=== PATIENT | female | born 1975 | race Two or more races ===

== ENCOUNTER 2025-02-08 04:31 | Inpatient (IN) | payer MEDICAID, SELFPAY ==
[2025-02-08] VITALS (11 sets, daily range): BP systolic 129–160; BP diastolic 70–102; PULSE 95–130; RESP 13–26; TEMP 36.4–36.9; O2SAT 92–99; BMI 31.1; BMI 33.3
--- NOTE | 2025-02-08 | ECG_ITS ---
Test Reason : chest pain Blood Pressure : */* mmHG Vent. Rate : 95 BPM Atrial Rate : 95 BPM P-R Int : 148 ms QRS Dur : 88 ms QT Int : 404 ms P-R-T Axes : 50 46 58 degrees QTcB Int : 507 ms Normal sinus rhythm Nonspecific T wave abnormality Prolonged QT Abnormal ECG When compared with ECG of 08-Feb-2025 16:17, No significant change was found Referred By: Isabela Hoyt Electronically Signed By: MESFIN POE
--- NOTE | 2025-02-08 | ECG_ITS ---
Test Reason : CHEST PAIN Blood Pressure : */* mmHG Vent. Rate : 97 BPM Atrial Rate : 97 BPM P-R Int : 144 ms QRS Dur : 98 ms QT Int : 366 ms P-R-T Axes : 45 42 68 degrees QTcB Int : 464 ms Normal sinus rhythm Normal ECG No previous ECGs available Referred By: Generic ED Physician Electronically Signed By: MESFIN POE
[2025-02-08 05:29] LABS: Alanine Aminotransferase 29 U/L (0-31); Albumin Level 4.8 g/dL (3.5-5.0); Alkaline Phosphatase 79 U/L (39-117); Anion Gap 24 (12-20); Aspartate Amino Transferase 76 U/L (5-31); Blood Urea Nitrogen 8 mg/dL (9-16); Calcium 8.6 mg/dL (8.4-10.2); Carbon Dioxide 18 mmol/L (22-29); Chloride 104 mmol/L (96-108); Creatinine Clr Calc Pharmacy 119.8; Estimated Glomerular Filt Rate > 60; Potassium 3.1 mmol/L (3.3-5.1); Sodium 143 mmol/L (135-145); Total Protein 8.3 g/dL (6.5-8.0)
[2025-02-08 05:37] LABS: Troponin-I High Sensitivity 13.3 ng/L (<3.5-17.0)
[2025-02-08 06:08] LABS: Magnesium 2.0 mg/dL (1.6-2.6)
[2025-02-08 06:14] LABS: Hematocrit 39.1 % (37.0-47.0); Hemoglobin 13.0 g/dl (12.0-16.0); Imm Gran Abs Auto 0.01 X10*3/uL (0.00-0.03); Imm Gran Pct Auto 0.2 % (0.0-0.4); Lymphocytes Absolute Auto 1.5 X10*3/uL (1.2-4.9); Mean Corpuscular HGB Conc 33.2 g/dl (31.0-35.0); Mean Corpuscular Hemoglobin 30.0 pg (27.0-33.0); Mean Corpuscular Volume 90.1 fL (80.0-98.0); NRBC Abs Auto 0.000 X10*3/uL (0.0-0.012); NRBC Pct Auto 0.0 /100WBC (0.0-0.2); Platelet Count 149 X10*3/uL (160-400); Red Blood Count 4.34 X10*6/uL (4.20-5.50); White Blood Count 4.1 X10*3/uL (4.8-10.8)
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
[2025-02-08] MEDS: Lactated Ringers 1,000 ML 999 ML IV (06:43)
[2025-02-08] MEDS: diazePAM 10 MG/2 ML CARTRIDGE 5 MG IVPUSH (06:43)
[2025-02-08] MEDS: Potassium Chloride Packet 20 MEQ PACKET 40 MEQ PO (06:44)
--- OUTSIDE RECORDS SUMMARY | 2025-02-08 07:50 | XMS_ITS | Encounter Summary ---
Author Organization [facility] Address [address] [place] [id number] Care Team Providers Care Arresting Gear Operator Name Role Phone Paula Horton MD Primary Care Provider [phone]- [phone] Encounter Details Date Type Department Care Team (Late st Contact Info) Description 05/20/2016 Orders Only [facility] Primary Care Family Medicine [place] 5 [facility] [address] [place] [address] Paula Horton MD 5 [facility] [address] [place] [address] Social History Tobacco Use Types Packs/Day Years Used Date Smoking Tobacco: Former Comments:social smoker for 1 0 years Alcohol Use Standard Drinks/Week Comments Yes 0 (1 standard drink = 0.6 oz pur e alcohol) 4 days a week- 5 beers Substance Use Types Use/Week Comments No Comments No Sex and Gender Information Value Date Recorded Sex Assigned at Not on file Legal Sex Female 12:14 PM EDT Gender Identity Not on file Sexual Orientation Not on file documented as of this encounter Functional Status * Are you deaf or do you have serious difficulty hearing? Answer Date of Assessment Author Status No 08/23/2014 11:04 AM EDT Kathrine Boogie R N Active * Are you blind or do you have serious difficulty seeing, even when wearing glasses? Answer Date of Assessment Author Status No 08/23/2014 11:04 AM EDT Kathrine Boogie R N Active * Do you have serious difficulty walking or climbing stairs? (5 years old or older) Answer Date of Assessment Author Status No 08/23/2014 11:04 AM EDT Kathrine Boogie R N Active * Do you have difficulty dressing or bathing? (5 years old or older) Answer Date of Assessment Author Status No 08/23/2014 11:04 AM EDT Kathrine Boogie R N Active * Because of a physical, mental, or emotional condition, do you have difficulty doing errands alone such as visiting a doctor's office or shopping? (15 years old or older) Answer Date of Assessment Author Status No 08/23/2014 11:04 AM EDT Kathrine Boogie R N Active documented as of this encounter Mental Status * Because of a physical, mental, or emotional condition, do you have serious difficulty concentrating, remembering, or making decisions? (5 years old or older) Answer Entry Date Author Status No 08/23/2014 11:04 AM EDT Kathrine Boogie R N Active documented in this encounter Miscellaneous Notes * Telephone Encounter - Roseanna Rios FNP - 01/30/2017 2:03 PM EST Covering for PCP g sent documented in this encounter Plan of Treatment Not on file documented as of this encounter Goals Goal Patient Goal Type Associated Problems Recent Progress Patient-Stated? Author Weight loss Weight No Paula Horton MD documented as of this encounter Procedures Procedure Name Priority Date/Time Associated Diagnosis Comments VITAMIN D 25-HYDROXY TOTAL (DEFICIENCY SCREENING ASSAY) Routine 01/29/2017 8:48 AM EST Hypovitaminosis D documented in this encounter Results * (ABNORMAL) VITAMIN D 25-HYDROXY TOTAL (DEFICIENCY SCREENING ASSAY) (01/29/2017 8:48 AM EST) Vitamin D 25-Hydroxy 20.1(L) 25.0 - 50.0 ng/mL [facility] Comment: <13 ng/mL (deficient) 13-24 ng/mL (inadequate) 25-50 ng/mL (sufficient) >50 ng/mL (possibly harmful level - this is a suggested range according to the IOM/CDC 2011 guidelines, please interpret within the clinical context) Blood specimen (specimen) 01/29/2017 8:48 AM EST 01/29/2017 8:49 AM EST Paula Horton MD CHEMISTRY ORDERABLES Final Result [facility] [address] [place] [address] documented in this encounter Visit Diagnoses Diagnosis Hypovitaminosis D Unspecified vitamin D deficiency documented in this encounter Additional Health Concerns Assessment Noted Time A Body Mass Index follow-up plan has been documented for the patient 03/27/2016 9:39 AM EST documented as of this encounter Care Teams Arresting Gear Operator Relationship Specialty Start Date End Date Paula Horton MD [address] [phone] PCP - General Family Medicine 02/21/16 05/24/21 documented as of this encounter
--- OUTSIDE RECORDS SUMMARY | 2025-02-08 07:50 | XMS_ITS | Encounter Summary ---
Author Organization [facility] Address [address] [place] [id number] Care Team Providers Care Title I Instructional Assistant Name Role Phone Paula Horton MD Primary Care Provider [phone]- [phone] Reason for Visit * Reason Comments Medications Refill Encounter Details Date Type Department Care Team (Late st Contact Info) Description 05/18/2021 Refill [facility] Primary Care Family Medicine [place] [address] [phone] Paula Horton MD [address] [phone] Social History Tobacco Use Types Packs/Day Years Used Date Smoking Tobacco: Former Smokeless Tobacco: Never Comments:social smoker for 1 0 years Alcohol Use Standard Drinks/Week Comments Yes 0 (1 standard drink = 0.6 oz pur e alcohol) PHQ-2 Answer Date Recorded Patient Health Questionnaire-2 Score 3 01/11/2021 Substance Use Types Use/Week Comments No Comments [...] encounter Miscellaneous Notes * Telephone Encounter - Navya Castaneda MA - 05/19/2021 11:11 AM EST Called to remind of upcoming appointments Future Appointments Date Time Provider Department Center 05/29/2021 4:30 PM Paula Horton MD [facility] 07/12/2021 2:50 PM Paula Horton MD [facility] * Telephone Encounter - Paula Horton MD - 05/18/2021 5:11 PM EST Please ensure patient knows about her upcoming appt, she has no showed her last several appointments * Telephone Encounter - Navya Castaneda MA - 05/18/2021 3:22 PM EST Medication refill being requested: Date of last refill: 04/17/21 30/1rf Requested Prescriptions Pending Prescriptions Disp Refills ??? escitalopram (Lexapro) 10 MG Tab [Pharmacy Med Name: ESCITALOPRAM 10 MG TABLET] 30 Tablet 1 Sig: TAKE 1 TABLET BY MOUTH EVERY DAY Last OV: 01/11/21 Pending Appointment: Future Appointments Date Time Provider Department Center 05/29/2021 4:30 PM Paula Horton MD [facility] 07/12/2021 2:50 PM Paula Horton MD [facility] Medication has been processed per practice protocol. Refill encounter routed to provider for review and signature. I have reviewed and verified that the above information is correct. documented in this encounter Plan of Treatment Not on file documented as of this encounter Goals Goal Patient Goal Type Associated Problems Recent Progress Patient-Stated? Author Weight loss Weight No Paula Horton MD documented as of this encounter Visit Diagnoses Not on filedocumented in this encounter Additional Health Concerns Assessment Noted Time A Body Mass Index follow-up plan has been documented for the patient 03/27/2016 9:39 AM EST A Depression follow-up plan has been documented for the patient 01/11/2021 2:54 PM EDT documented as of this encounter Care Teams Title I Instructional Assistant Relationship Specialty Start Date End Date Paula Horton MD [address] [address] [phone] PCP - General Family Medicine 02/21/16 05/24/21 documented as of this encounter
--- OUTSIDE RECORDS SUMMARY | 2025-02-08 07:51 | XMS_ITS | Encounter Summary ---
Author Organization [facility] Address [address] [place] [address] Care Team Providers Care Non Profit Financial Controller Name Role Phone Paula Horton MD Primary Care Provider +1- [phone] Reason for Visit * Reason Onset Date Comments Medications Refill Schedule Appointment 04/24/2021 Encounter Details Date Type Department Care Team (Late st Contact Info) Description 04/16/[address] [facility] Primary Care Family Medicine [place] 5 [facility] [address] [place] [phone] Paula Horton MD 5 [facility] [address] [place] [address] Social History Tobacco Use Types [...] documented in this encounter Miscellaneous Notes * This document contains information received from the source organization and may not represent a complete record from that organization. * Restricted notes were excluded * Telephone Encounter - Emelia Rodríguez - 04/24/2021 2:20 PM ESTSummary: Med review appt LVM for patient to call or send [employer] message to follow up on medication * Telephone Encounter - Rachel Field MA - 04/17/2021 3:28 PM EST LM for patient to confirm that she is taking a full 10mg tab daily Medication refill being requested: Escitalopram Date of last refill: 01/11/21 Requested Prescriptions Pending Prescriptions Disp Refills ??? escitalopram 10 MG Tab [Pharmacy Med Name: ESCITALOPRAM 10 MG TABLET] 30 Tablet 3 Sig: TAKE 1/2 TABLET BY MOUTH DAILY X 1 WEEK THEN INCREASE TO 1 TAB DAILY Last OV: 01/11/21 Pending Appointment: Medication has been processed per practice protocol. [...] documented as of this encounter Care Teams Non Profit Financial Controller Relationship Specialty Start Date End Date Paula Horton MD [address] [phone] PCP - General Family Medicine 02/21/16 05/24/21 documented as of this encounter
--- OUTSIDE RECORDS SUMMARY | 2025-02-08 07:51 | XMS_ITS | Clinical Summary ---
Author Organization [facility] Address [address] [place] [address] Care Team Providers Care Neurology Director Name Role Phone Unavailable Primary Care Provider Unavailabl e Allergies No known active allergies Medications Multiple Vitamin (MULTIVITAMIN) Tab Take 1 Tab by mouth daily Active Spacer/Aero-Hol ding Chambers (AEROCHAMBER PLUS LISETH-VU LARGE) Misc 1 spacer 1 Each 9 Active albuterol HFA (PROAIR HFA) 108 (90 Base) MCG/ACT Aero Soln Inhalation 2 Puffs every 6 hours as needed for Wheezing 1 Inhaler 9 Active lidocaine-prilo delfina 2.5-2.5 % Cream Apply a thin layer 10 minutes before vaccination 30 gm 3 1 Active escitalopram (Lexapro) 10 MG Tab TAKE 1 TABLET BY MOUTH EVERY DAY 30 Tablet 2 Active Active Problems Problem Noted Date Diagnosed Date Anxiety 01/12/2021 Assessment & Plan (01/12/2021 9:52 AM EDT): Worsening anxiety, no acute depression, no signs of nakita. Patient safe at home, declines talk therapy. Discussed medication options in [place] escitalopram 5mg x 1 week, then increase to 10mg daily Has follow up in 1 month Discussed side effects of medication TSH, CBC, ferritin, recheck Vit D Elevated blood-pressure read ing without diagnosis of hypertension 12/03/2018 Assessment & Plan (12/03/2018 9:35 AM EDT): Blood pressure on the high end of normal. Patient continues to work on diet, exercise and weight loss. Hope that cessation of alcohol will continue to bring pressure down. Will recheck at next visit, if elevated, will start medications Vitamin D deficiency 03/27/2016 Assessment & Plan (01/12/2021 9:49 AM EDT): Vit D ordered Alcohol abuse 03/08/2016 Assessment & Plan (01/12/2021 9:50 AM EDT): Has done a great job cutting back on alcohol use Now with 1-2 drinks on the weekend Has not needed medication to help with etoh cessation Assessment & Plan (12/03/2018 9:30 AM EDT): Naltrexone with very limited effect on drinking. patient interested in something to help her avoid alcohol. Discussed options. Will trial antabuse. Discussed side effects In detail with patient. Will take in the morning to help deter evening alcohol use. Hand out on medication given. Discussed vivitrol injection, however patient would like to try oral medication first Expect that craving will be reduced when ex leaves the house in 1 months Assessment & Plan (03/08/2016 11:43 AM EST): 5-10 drinks nightly when depression is severe. No RUQ symptoms at presents - discussed slowly cutting down alcohol - ref behavioral health - CMP to assess liver function Health care maintenance 03/08/2016 Assessment & Plan (03/08/2016 11:44 AM EST): No records available today - agreeable to STD testing- blood work - Hep panel - HIV - syphilis - records requested - will return to clinic in 1 month for PE Chronic fatigue 03/08/2016 Assessment & Plan (03/08/2016 11:44 AM EST): - vit D - TSH Resolved Problems Problem Noted Date Diagnosed Date Resolved Date Cough 03/03/2018 12/03/2018 Assessment & Plan (03/03/2018 2:31 PM EST): 3-4 weeks of cough. Initially also had subjective fever, body aches, and fatigue, these have all now resolved. Worsening sx yesterday after sweeping house and developing sneezing/congestion. Likely viral URI vs influenza that has now resolved apart from post-viral cough, now with exacerbation due to allergies. - reviewed that cough can last for 6-8 weeks, symptomatic treatment with honey - trial of OTC zyrtec vs flonase for allergies - reviewed when to call: fever, increase in cough production, chest pain Depression 03/08/2016 01/12/2021 Assessment & Plan (12/03/2018 9:32 AM EDT): Patient witn improvement in her depression since starting sertraline, interested in increasing her medication. PARVEEN 9 of 9 today Will increase her Sertraline to 100mg daily Ok to increase trazodone to 100mg nightly for sleep Counseled in detail to avoid this medication if she has any alcohol Assessment & Plan (02/21/2017 2:18 PM EST): Patient with worsening depression and insomnia due to anxiety. Lots of life stressors- difficultly with work, in the family, recent break up. Would like to restart medications. Discussed sleep hygiene in detail. Patient has cut down alcohol use during the week- and working on decreasing alcohol at home. Has a follow up with [employer] coming up- patient hoping to work on technique to decrease racing mind. - Sertraline 50mg for 1 week, then increase to 100mg - Vistaril - STOP any OTC sleep aid - discussed sleep hygiene - continue to work on decreasing alcohol use - no Vistaril with alcohol - follow up 1 month - sooner if continues to be unabelt o sleep- could trial alternate sleep aids Assessment & Plan (01/29/2017 10:18 AM EST): PHQ-9 11 Ref to SW made today Rec melatonin If not working would try trazodone Assessment & Plan (03/08/2016 11:41 AM EST): Long standing history of depression, has a history of suicide attempts, however no recent thoughts of hurting herself or others. Feels safe at home. Consented for safety. Not interested in starting medcations at this time- is interested in meeting with behavioral health. Not able to perform warm hand off as social workers are unavailable, ray will make appointment as she leaves. - gave crisis numbers - discussed role of [facility] - patient to call should she wish to start medications - f/u 1 month - TSH - CBC -obtain old records Immunizations Immunization Administration Dates Next Due Pfizer Purple Cap(12+) Covid -19,mrna,lnp-s,pf,0.3ml ([id number]) 08/09/2020,07/19/2020 Family History Medical History Relation Name Comments Alcohol Abuse Father Drug Abuse Father Hypertension Father Heart Disease Maternal Grandfather Colon Cancer Maternal Uncle Hypertension Mother Relation Name Status Comments Father Maternal Grandfather Maternal Uncle Mother Social History Tobacco Use Types Packs/Day Years [...] on file Sexual Orientation Not on file Last Filed Vital Signs Vital Sign Reading Time Taken Comments Blood Pressure 126/92 01/11/2021 2:49 PM EDT Pulse 96 01/11/2021 2:49 PM EDT Temperature 35.8 C (96.4 F) 01/11/2021 2:49 PM EDT Respiratory Rate 16 12/02/2018 9:12 AM EDT Oxygen Saturation 99% 01/11/2021 2:49 PM EDT Inhaled Oxygen Concentration 99% 01/11/2021 2 :49 PM EDT Weight 83.6 kg (184 lb 6.4 oz) 01/11/2021 2:49 P M EDT Height 157.5 cm (5' 2.01 ) 01/11/2021 2:49 PM ED T Body Mass Index 33.72 01/11/2021 2:49 PM EDT Plan of Treatment Not on file Goals Goal Patient Goal Type Associated Problems Recent Progress Patient-Stated? Author Weight loss Weight No Paula Horton MD Insurance [facility]
--- OUTSIDE RECORDS SUMMARY | 2025-02-08 07:51 | XMS_ITS | Encounter Summary ---
Author Organization [facility] Address [address] [place] [id number] Care Team Providers Care Fare Collector Name Role Phone Paula Horton MD Primary Care Provider [phone]- [phone] Encounter Details Date Type Department Care Team (Late st Contact Info) Description 03/27/2016 Orders Only [facility] [place] 5 [facility] [address] [place] [address] Paula Horton MD 5 [facility] [address] [place] [address] Social History Tobacco Use Types [...] Telephone Encounter - Roseanna Rios FNP - 01/29/2017 4:02 PM EST ASCVD% 0.5%. msg sent. Normal flp for age documented in this encounter Plan of Treatment Not on file documented as of this encounter Goals Goal Patient Goal Type Associated Problems Recent Progress Patient-Stated? Author Weight loss Weight No Paula Horton MD documented as of this encounter Procedures Procedure Name Priority Date/Time Associated Diagnosis Comments LIPID PANEL Routine 01/29/2017 8:48 AM EST Screening for lipid disorders documented in this encounter Results * (ABNORMAL) LIPID PANEL (01/29/2017 8:48 AM EST) Cholesterol, POC 210(H) 112 - 199 mg/dL [facility] Triglycerides, POC 126 mg/dL [facility] Comment: REFERENCE RANGE: < 150 mg/dl FOR FASTING < 175 mg/dl FOR NON-FASTING (BASED ON LITERATURE) HDL Cholesterol, POC 66 40 - 200 mg/dL [facility] LDL Cholesterol Calculation 119(H) 57 - 99 mg/dL [facility] Blood specimen (specimen) 01/29/2017 8:48 AM EST 01/29/2017 8:49 AM EST Paula Horton MD CHEMISTRY ORDERABLES Final Result [facility] [address] [place] [address] documented in this encounter Visit Diagnoses Diagnosis Screening for lipid disorders documented in this encounter Additional Health Concerns Assessment Noted Time A Body Mass Index follow-up plan has been documented for the patient 03/27/2016 9:39 AM EST documented as of this encounter Care Teams Fare Collector Relationship Specialty Start Date End Date Paula Horton MD [address] [address] PCP - General Family Medicine 02/21/16 05/24/21 documented as of this encounter
[2025-02-08] MEDS: PHENobarbitaL sodium 130 MG/ML IM ONCE 200 MG IM (10:21)
--- NOTE | 2025-02-08 10:28 | PM.IMHP ---
History of Present Illness Date of Service: 02/08/25 <Isabela Hoyt NP - Last Filed: 02/08/25 13:50> Chief Complaint: Call intoxication <Isabela Hoyt NP - Last Filed: 02/08/25 13:50> Alcohol intoxication <Alix Colon MD - Last Filed: 02/26/25 09:14> 49-year-old woman presented to the ER with alcohol intoxication and withdrawal. Patient reported that she moved here from [place] about 3 weeks ago to move in with her boyfriend and has been drinking consistently every day. She reports that prior to 3 weeks ago she has not been drinking as often but has had many issues over the years with her alcoholism. She reports that this time she is not talking to any of her children. Patient reports feeling shaky, poor appetite. Alcohol level was 380. Potassium 3.1, tachycardia and hypertension noted. Patient will be admitted for alcohol intoxication and withdrawal. <Isabela Hoyt NP - Last Filed: 02/08/25 13:50> Review of Systems Review of Systems: Denies any recent fever chills or decrease in appetite respiratory denies any shortness of breath or cough cardiovascular denied chest pain gastrointestinal denies any dysphagia abdominal pain nausea vomiting or diarrhea genitourinary denies any dysuria frequency or hematuria musculoskeletal denies any joint pain or swelling neuropsych denies any weakness or seizures all other systems reviewed are negative <Isabela Hoyt NP - Last Filed: 02/08/25 13:50> [facility] Medical History: Medical History (Updated 02/18/25 @ 00:02 by Jaylene Garcia) Alcohol use disorder, severe, dependence Anxiety Hypertension <Isabela Hoyt NP - Last Filed: 02/08/25 13:50> Family History: Family History (Updated 02/08/25 @ 11:05 by Isabela Hoyt NP) Father Alcoholic <Isabela Hoyt NP - Last Filed: 02/08/25 13:50> Social History: Social History Household Members: None Housing: Homeless Do you presently have visiting nurse or other home services: No Alcohol intake: current Patient Tobacco Use Status: Former Tobacco user <Isabela Hoyt NP - Last Filed: 02/08/25 13:50> Meds Allergies/Adverse reactions: Allergies Allergy/AdvReac Type Severity Reaction Status Date / Time No Known Allergies Allergy Verified 02/08/25 04:43 <Isabela Hoyt NP - Last Filed: 02/08/25 13:50> Active Medications: Current Medications Lactated Ringer's (Lr) 1,000 mls @ 0 mls/hr IV .Q0M MADDY Last Infusion: 02/08/25 08:04 Dose: Infused Pharmacy Consult (Consult Rx Etoh Phenob Im/Po) 1 each MISCELLANE ONCE PRN; Protocol PRN Reason: Consult order Phenobarbital (Phenobarbital 15 Mg Tablet) 45 mg PO BID MADDY; Protocol Stop: 02/10/25 21:01 Phenobarbital (Phenobarbital 30 Mg Tablet) 30 mg PO BID MADDY; Protocol Stop: 02/12/25 21:01 Phenobarbital (Phenobarbital 30 Mg Tablet) 30 mg PO DAILY MADDY; Protocol Stop: 02/14/25 09:01 Phenobarbital Sodium (Phenobarbital Sodium 130 Mg/Ml Im Once) 200 mg IM ONCE ONE; Protocol Stop: 02/08/25 11:01 Last Admin: 02/08/25 10:21 Dose: 200 mg Phenobarbital Sodium (Phenobarbital Sodium 130 Mg/Ml Vial Im Q3hx2) 150 mg IM Q3H MADDY; Protocol Stop: 02/08/25 17:01 <Isabela Hoyt NP - Last Filed: 02/08/25 13:50> Home medications: Home Medications ?Medication ?Instructions ?Recorded ?Confirmed ?Last Taken ?Type amlodipine 5 mg tablet 5 mg PO DAILY 02/08/25 02/08/25 Unknown History citalopram 10 mg tablet 10 mg PO DAILY 02/08/25 02/08/25 Unknown History hydrochlorothiazide 25 mg tablet 25 mg PO DAILY 02/08/25 02/08/25 Unknown History mirtazapine 7.5 mg tablet 7.5 mg PO BEDTIME PRN Insomnia 02/08/25 02/08/25 Unknown History multivitamin 1 tab PO DAILY 02/08/25 02/08/25 Unknown History <Isabela Hoyt NP - Last Filed: 02/08/25 13:50> Physical Exam Vital Signs and Narrative: Vital Signs: Last Vital Signs Temp 98.3 F 02/08/25 08:24 Pulse 101 H 02/08/25 08:24 Resp 18 02/08/25 08:24 BP 160/70 H 02/08/25 08:24 Pulse Ox 95 02/08/25 08:24 O2 Del Method Room Air 11/17/25 08:24 BMI result Body Mass Index 31.1 <Isabela Hoyt NP - Last Filed: 02/08/25 13:50> Appearing in no acute distress, weeping head is normocephalic atraumatic eyes pupils are PERRLA sclera is anicteric mouth throat mucous membranes are intact and moist neck is supple no lymphadenopathy, no JVD noted lung sounds are clear to auscultation heart regular rate rhythm, clear S1, S2 positive bowel sounds, abdomen is soft, nontender neuro patient is alert x3, no focal deficits Tremulous <Isabela Hoyt NP - Last Filed: 02/08/25 13:50> Results Labs CBC and Chem 7: 02/09/25 06:03 02/09/25 06:03 <Isabela Hoyt NP - Last Filed: 02/08/25 13:50> Labs: Laboratory Results - last 24 hr 02/08/25 02/08/25 05:08 06:07 MCV 90.1 MCH 30.0 MCHC 33.2 RDW 15.6 Plt Count 149 L MPV 9.8 Immature Gran % (Auto) 0.2 Neut % (Auto) 54.3 Lymph % (Auto) 36.0 Rich % (Auto) 8.0 Eos % (Auto) 0.5 Baso % (Auto) 1.0 Lymph # (Auto) 1.5 Rich # (Auto) 0.3 Eos # (Auto) 0.0 Baso # (Auto) 0.0 Abs Immat Gran (auto) 0.01 Absolute Neuts (auto) 2.3 Absolute Nucleated RBC 0.000 Nucleated RBC % (auto) 0.0 Anion Gap 24 H Estim Creat Clear Calc 119.8 Estimated GFR > 60 Random Glucose 75 Calcium 8.6 Magnesium 2.0 Total Bilirubin 0.8 AST 76 H ALT 29 Alkaline Phosphatase 79 Troponin I High Sens 13.3 Total Protein 8.3 H Albumin 4.8 Ethyl Alcohol 380 H* <Isabela Hoyt NP - Last Filed: 02/08/25 13:50> Assessment and Plan (1) Alcohol withdrawal: Status: Resolved <Isabela Hoyt NP - Last Filed: 02/08/25 13:50> 49-year-old woman presented to the ER with alcohol intoxication and beginnings of withdrawal Alcohol intoxication and withdrawal Elevated alcohol level Started on phenobarbital protocol Monitor on CIWA scale Addiction Medicine consultation IV thiamine, oral multivitamin and folic acid PPI IV fluids Encouraged diet Tachycardia Secondary to alcohol withdrawal symptoms Hypokalemia Likely secondary to alcohol use Replete Hypertension continue amlodipine and HCTZ Anxiety continue celexa DVT prophylaxis Lovenox Full code <Isabela Hoyt NP - Last Filed: 02/08/25 13:50> Quality Stroke Does the patient have a stroke diagnosis?: No <Isabela Hoyt NP - Last Filed: 02/08/25 13:50> VTE Prior VTE?: No <Isabela Hoyt NP - Last Filed: 02/08/25 13:50> VTE Risk Level:: Medical - moderate - high <Isabela Hoyt NP - Last Filed: 02/08/25 13:50> VTE Device Contraindication: Treatment Not Indicated <Isabela Hoyt NP - Last Filed: 02/08/25 13:50> VTE Drug Contraindication: N/A - Med Ordered <Isabela Hoyt NP - Last Filed: 02/08/25 13:50>
--- NOTE | 2025-02-08 10:34 | PC.NURSE ---
Pt with increased anxiety, stated I just feel awful . Initially refusing to stay. Denies SI/HI/AVH. Is not interested in detox. Increase tremors. MD spoke with pt about withdraw symptoms. Phenobarb protocol ordered. Pt is agreeable to admission at this time.
[2025-02-08] MEDS: Thiamine HCL 100 MG in 0.9 % Sodium Chloride 100 ML 202 MG IV (11:51)
[2025-02-08] MEDS: Lactated Ringers 1,000 ML 125 ML IVCONT (11:53)
--- NOTE | 2025-02-08 12:21 | PHA.MEDREC ---
Pharmacy Consult ? Medication Reconciliation Pharmacy has completed the medication reconciliation.Patient knew medications and said they take them when they can . Haven't filled citalopram or hctz since May
[2025-02-08] MEDS: PHENobarbitaL sodium 130 MG/ML VIAL IM Q3Hx2 150 MG IM ×2 (13:19→17:52)
--- NOTE | 2025-02-08 16:10 | PC.NURSE ---
Patient reports headache, 8/10. This RN at the bedside to administer pain medication, patient states I'm going to throw up , emesis bag given to patient, patient vomited small about of yellow emesis into bag, then began complaining of 10/10 chest pain. EKG obtained. Tremors visible. Not diaphoretic, no SOB. CIWA score obtained. Patient Medicated with Tylenol per the MAY. Provider notified of chest pain and EKG. Was not able to give Ibuprofen or Phenobarb because not available in overflow. Patient resting at this time, respirations even and unlabored. Call matthews within reach.
--- NOTE | 2025-02-08 16:47 | PC.NURSE ---
Pain reassessed, patient states chest pain and headache are both 5/10. No nausea/vomiting. No SOB. Respirations even and unlabored. Patient resting, states she is comfortable. Call matthews placed within reach. Awaiting transport to floor.
[2025-02-08] MEDS: Potassium Chloride ER 20 MEQ TAB.ER.PRT PO (20:03)
[2025-02-08] MEDS: 0.9 % Sodium Chloride Flush 3 ML SYRINGE IVFLUSH (20:03)
[2025-02-09 03:30] VITALS: BP 133/81; PULSE 96; RESP 18; TEMP 37.2; O2SAT 98
[2025-02-09 06:40] LABS: Hematocrit 43.2 % (37.0-47.0); Hemoglobin 14.4 g/dl (12.0-16.0); Mean Corpuscular HGB Conc 33.3 g/dl (31.0-35.0); Mean Corpuscular Hemoglobin 30.3 pg (27.0-33.0); Mean Corpuscular Volume 90.8 fL (80.0-98.0); NRBC Abs Auto 0.000 X10*3/uL (0.0-0.012); NRBC Pct Auto 0.0 /100WBC (0.0-0.2); Platelet Count 142 X10*3/uL (160-400); Red Blood Count 4.76 X10*6/uL (4.20-5.50); White Blood Count 3.5 X10*3/uL (4.8-10.8)
[2025-02-09 06:51] LABS: Anion Gap 18 (12-20); Blood Urea Nitrogen 5 mg/dL (9-16); Calcium 9.0 mg/dL (8.4-10.2); Carbon Dioxide 23 mmol/L (22-29); Chloride 96 mmol/L (96-108); Creatinine Clr Calc Pharmacy 131.5; Estimated Glomerular Filt Rate > 60; Magnesium 1.7 mg/dL (1.6-2.6); Potassium 3.7 mmol/L (3.3-5.1); Sodium 133 mmol/L (135-145)
--- NOTE | 2025-02-09 07:25 | HO.PM.IMPN ---
Subjective Subjective Date of Service: 02/09/25 Review of Systems Follow up alcohol intoxication and withdrawal still feeling withdrawal symptoms of tremors and anxiety Physical Exam Exam: Exam: Appearing in no acute distress lung sounds are clear to auscultation heart regular rate rhythm, clear S1, S2 positive bowel sounds, abdomen is soft, nontender neuro patient is alert x3, no focal deficits Mild tremors Vital Signs: Vital Signs: Last Vital Signs Temp 99.0 F 02/09/25 03:30 Pulse 96 02/09/25 03:30 Resp 18 02/09/25 03:30 BP 133/81 02/09/25 03:30 Pulse Ox 98 02/09/25 03:30 O2 Del Method Room Air 02/09/25 03:30 BMI result Body Mass Index 33.3 Objective Data Active Medications Acetaminophen (Acetaminophen 325 Mg Tablet) 650 mg PO Q6H PRN PRN Reason: Pain, Mild 1-3,fever,headache Last Admin: 02/08/25 16:00 Dose: 650 mg Documented By: KELLE Amlodipine Besylate (Amlodipine Besylate 5 Mg Tablet) 5 mg PO DAILY COUNTS INCLUDE 234 BEDS AT THE [facility]; Protocol Calcium Carbonate (Calcium Carbonate 750 Mg Tab.Chew) 750 mg PO Q4H PRN PRN Reason: Heartburn Enoxaparin Sodium (Enoxaparin Sodium 40 Mg/0.4 Ml Syringe) 40 mg SUBCUT Q24H COUNTS INCLUDE 234 BEDS AT THE [facility] Last Admin: 02/08/25 13:09 Dose: Not Given Documented By: BRETT Non-Admin Reason: Patient Refused Escitalopram Oxalate (Escitalopram Oxalate 5 Mg Tablet) 5 mg PO DAILY COUNTS INCLUDE 234 BEDS AT THE [facility] Folic Acid (Folic Acid 1 Mg Tablet) 1 mg PO DAILY COUNTS INCLUDE 234 BEDS AT THE [facility] Last Admin: 02/08/25 11:50 Dose: 1 mg Documented By: BRETT Hydrochlorothiazide (Hydrochlorothiazide 25 Mg Tablet) 25 mg PO DAILY COUNTS INCLUDE 234 BEDS AT THE [facility]; Protocol Lactated Ringer's (Lr) 1,000 mls @ 0 mls/hr IV .Q0M COUNTS INCLUDE 234 BEDS AT THE [facility] Last Infusion: 02/08/25 08:04 Dose: Infused Documented By: BRETT Thiamine HCl 100 mg/ Sodium (Chloride) 101 mls @ 202 mls/hr IV DAILY COUNTS INCLUDE 234 BEDS AT THE [facility] Last Infusion: 02/08/25 12:22 Dose: Infused Documented By: BRETT Ibuprofen (Ibuprofen 400 Mg Tablet) 400 mg PO Q6H PRN PRN Reason: Headache/Pain, Scale 1-10 Last Admin: 02/08/25 22:11 Dose: 400 mg Documented By: MARIO Magnesium Hydroxide (Milk Of Magnesia 30 Ml Oral.Susp) 30 ml PO DAILY PRN PRN Reason: Constipation Melatonin (Melatonin 3 Mg Tablet) 6 mg PO BEDTIME PRN PRN Reason: Insomnia Last Admin: 02/09/25 02:27 Dose: 6 mg Documented By: MARIO Mirtazapine (Mirtazapine 7.5 Mg Tablet) 7.5 mg PO BEDTIME PRN PRN Reason: Insomnia Last Admin: 02/08/25 22:11 Dose: 7.5 mg Documented By: MARIO Multivitamins/Vitamin C (Multivitamin Tablet) 1 tab PO DAILY COUNTS INCLUDE 234 BEDS AT THE [facility] Last Admin: 02/08/25 11:50 Dose: 1 tab Documented By: BRETT Ondansetron HCl (Ondansetron Hcl 4 Mg/2 Ml Vial) 4 mg IVPUSH Q8H PRN PRN Reason: Nausea and Vomiting Pharmacy Consult (Consult Rx Etoh Phenob Im/Po) 1 each MISCELLANE ONCE PRN; Protocol PRN Reason: Consult order Phenobarbital (Phenobarbital 15 Mg Tablet) 45 mg PO BID COUNTS INCLUDE 234 BEDS AT THE [facility]; Protocol Stop: 02/10/25 21:01 Phenobarbital (Phenobarbital 30 Mg Tablet) 30 mg PO BID COUNTS INCLUDE 234 BEDS AT THE [facility]; Protocol Stop: 02/12/25 21:01 Phenobarbital (Phenobarbital 30 Mg Tablet) 30 mg PO DAILY COUNTS INCLUDE 234 BEDS AT THE [facility]; Protocol Stop: 02/14/25 09:01 Potassium Chloride (Potassium Chloride Er 20 Meq Tab.Er.Prt) 20 meq PO BID COUNTS INCLUDE 234 BEDS AT THE [facility] Last Admin: 02/08/25 20:03 Dose: 20 meq Documented By: MARIO Sodium Chloride (0.9 % Sodium Chloride Flush 3 Ml Syringe) 3 ml IVFLUSH QSHIFT COUNTS INCLUDE 234 BEDS AT THE [facility] Last Admin: 02/08/25 20:03 Dose: 3 ml Documented By: MARIO Labs 02/09/25 06:03 02/09/25 06:03 Labs: Laboratory Results - last 24 hr 02/09/25 06:03 MCV 90.8 MCH 30.3 MCHC 33.3 RDW 14.9 Plt Count 142 L MPV 10.3 Absolute Nucleated RBC 0.000 Nucleated RBC % (auto) 0.0 Anion Gap 18 Estim Creat Clear Calc 131.5 Estimated GFR > 60 Random Glucose 70 Calcium 9.0 Magnesium 1.7 Assessment and Plan (1) Alcohol withdrawal: Status: Acute (2) Alcohol intoxication: Status: Acute Plan 49-year-old woman presented to the ER with alcohol intoxication and beginnings of withdrawal Alcohol intoxication and withdrawal Elevated alcohol level continue phenobarbital protocol Monitor on CIWA scale Addiction Medicine consultation pending IV thiamine, oral multivitamin and folic acid PPI IV fluids Encourage diet Tachycardia Secondary to alcohol withdrawal symptoms Hypokalemia. Resolved Likely secondary to alcohol use Repleted Hypertension continue amlodipine and HCTZ Thrombocytopenia Likely from chronic alcohol use Anxiety continue celexa DVT prophylaxis Lovenox Full code Quality Stroke Does the patient have a stroke diagnosis?: No VTE Prior VTE?: No VTE Risk Level:: Medical - moderate - high VTE Device Contraindication: Treatment Not Indicated VTE Drug Contraindication: N/A - Med Ordered
[2025-02-09 08:00] VITALS: BP 126/89; PULSE 103; PULSE 93; RESP 18; TEMP 36.6; O2SAT 96
[2025-02-09] MEDS: Thiamine HCL 100 MG in 0.9 % Sodium Chloride 100 ML 202 MG IV (08:35)
[2025-02-09] MEDS: Potassium Chloride ER 20 MEQ TAB.ER.PRT PO ×2 (08:35→20:35)
[2025-02-09] MEDS: Lactated Ringers 1,000 ML 100 ML IVCONT ×2 (08:41→20:35)
[2025-02-09] MEDS: 0.9 % Sodium Chloride Flush 3 ML SYRINGE IVFLUSH (08:43)
--- NOTE | 2025-02-09 10:55 | HO.ADDICTCON ---
History of Present Illness Date of Service: 02/09/2025 Chief Complaint: Alcohol Withdrawal and Intoxication Reason for Consult: AUD with acute withdrawal Sources of Information: patient interviewed and chart reviewed HPI Narrative: Patient is a 49 year old female admitted with acute alcohol withdrawal. Patient seen in room 361. She is awake, alert, engaged in interview. Reporting that she feels weak and sick . Reports she moved out to this area recently after meeting someone, and per her report, this individual has AUD as well. States she has been drinking from the minute I wake up, until I fall asleep . She reports that needs to find a way to get her belongings and car so she can go back to [place] or [place], she does not feel her current living environment is healthy for her. Reports unhealthy relationship with alcohol started in her 20s. Reports history of treatment--unclear what settings or when as patient requested to rest and resume interview later this afternoon. T/W agreeable. Overall she is slow moving, no diaphoresis or restlessness noted. mild tremor, sensitive to light. No nausea or vomiting. Labs reviewed Medical Evaluation Reviewed: Yes Review of Systems Constitutional: Reports as per HPI Diagnostics Vital Signs (24Hr): Vital Signs - 24 hr 02/08/25 13:06 02/08/25 16:00 02/08/25 20:00 Temperature 97.5 F 97.7 F Pulse Rate 103 H 96 97 Respiratory Rate 16 16 16 Blood Pressure 132/85 158/99 H 148/98 H Pulse Oximetry 95 96 99 Oxygen Delivery Method Room Air Room Air Room Air 02/08/25 23:40 02/09/25 03:30 02/09/25 08:00 Temperature 98.5 F 99.0 F 97.9 F Pulse Rate 97 96 103 H Respiratory Rate 18 18 18 Blood Pressure 140/84 H 133/81 126/89 Pulse Oximetry 98 98 96 Oxygen Delivery Method Room Air Room Air Room Air 02/09/25 08:00 Temperature 97.9 F Pulse Rate 93 Respiratory Rate 18 Blood Pressure 126/89 Pulse Oximetry Oxygen Delivery Method Room Air BMI result Body Mass Index 33.3 Labs 02/09/25 06:03 02/09/25 06:03 Labs: Laboratory Results - last 48 hr 02/08/25 02/08/25 02/09/25 05:08 06:07 06:03 WBC 4.1 L 3.5 L RBC 4.34 4.76 Hgb 13.0 14.4 Hct 39.1 43.2 MCV 90.1 90.8 MCH 30.0 30.3 MCHC 33.2 33.3 RDW 15.6 14.9 Plt Count 149 L 142 L MPV 9.8 10.3 Immature Gran % (Auto) 0.2 Neut % (Auto) 54.3 Lymph % (Auto) 36.0 [place] % (Auto) 8.0 Eos % (Auto) 0.5 Baso % (Auto) 1.0 Lymph # (Auto) 1.5 [place] # (Auto) 0.3 Eos # (Auto) 0.0 Baso # (Auto) 0.0 Abs Immat Gran (auto) 0.01 Absolute Neuts (auto) 2.3 Absolute Nucleated RBC 0.000 0.000 Nucleated RBC % (auto) 0.0 0.0 Sodium 143 133 L Potassium 3.1 L 3.7 Chloride 104 96 Carbon Dioxide 18 L 23 Anion Gap 24 H 18 BUN 8 L 5 L Creatinine 0.54 0.51 Estim Creat Clear Calc 119.8 131.5 Estimated GFR > 60 > 60 Random Glucose 75 70 Calcium 8.6 9.0 Magnesium 2.0 1.7 Total Bilirubin 0.8 AST 76 H ALT 29 Alkaline Phosphatase 79 Troponin I High Sens 13.3 Total Protein 8.3 H Albumin 4.8 Ethyl Alcohol 380 H* Mental Status Exam Mental Status Exam Level of Consciousness: Awake and Lethargic Patient Behavior: Appropriate Affect Description: Blunted Speech Pattern: Clear Thought Process: Intact Thought Content: positive for Intact Judgement: Good Medications Medications Current Medications Acetaminophen (Acetaminophen 325 Mg Tablet) 650 mg PO Q6H PRN PRN Reason: Pain, Mild 1-3,fever,headache Last Admin: 02/08/25 16:00 Dose: 650 mg Amlodipine Besylate (Amlodipine Besylate 5 Mg Tablet) 5 mg PO DAILY [facility]; Protocol Last Admin: 02/09/25 08:35 Dose: 5 mg Calcium Carbonate (Calcium Carbonate 750 Mg Tab.Chew) 750 mg PO Q4H PRN PRN Reason: Heartburn Enoxaparin Sodium (Enoxaparin Sodium 40 Mg/0.4 Ml Syringe) 40 mg SUBCUT Q24H MADDY Last Admin: 02/09/25 10:51 Dose: Not Given Escitalopram Oxalate (Escitalopram Oxalate 5 Mg Tablet) 5 mg PO DAILY [facility] Last Admin: 02/09/25 08:35 Dose: 5 mg Folic Acid (Folic Acid 1 Mg Tablet) 1 mg PO DAILY MADDY Last Admin: 02/09/25 08:35 Dose: 1 mg Hydrochlorothiazide (Hydrochlorothiazide 25 Mg Tablet) 25 mg PO DAILY MADDY; Protocol Last Admin: 02/09/25 08:35 Dose: 25 mg Thiamine HCl 100 mg/ Sodium (Chloride) 101 mls @ 202 mls/hr IV DAILY MADDY Last Infusion: 02/09/25 09:15 Dose: Infused Lactated Ringer's (Lr) 1,000 mls @ 100 mls/hr IVCONT .Q10H MADDY Last Admin: 02/09/25 08:41 Dose: 100 mls/hr Ibuprofen (Ibuprofen 400 Mg Tablet) 400 mg PO Q6H PRN PRN Reason: Headache/Pain, Scale 1-10 Last Admin: 02/08/25 22:11 Dose: 400 mg Magnesium Hydroxide (Milk Of Magnesia 30 Ml Oral.Susp) 30 ml PO DAILY PRN PRN Reason: Constipation Melatonin (Melatonin 3 Mg Tablet) 6 mg PO BEDTIME PRN PRN Reason: Insomnia Last Admin: 02/09/25 02:27 Dose: 6 mg Mirtazapine (Mirtazapine 7.5 Mg Tablet) 7.5 mg PO BEDTIME PRN PRN Reason: Insomnia Last Admin: 02/08/25 22:11 Dose: 7.5 mg Multivitamins/Vitamin C (Multivitamin Tablet) 1 tab PO DAILY MADDY Last Admin: 02/09/25 08:35 Dose: 1 tab Ondansetron HCl (Ondansetron Hcl 4 Mg/2 Ml Vial) 4 mg IVPUSH Q8H PRN PRN Reason: Nausea and Vomiting Pharmacy Consult (Consult Rx Etoh Phenob Im/Po) 1 each MISCELLANE ONCE PRN; Protocol PRN Reason: Consult order Phenobarbital (Phenobarbital 15 Mg Tablet) 45 mg PO BID MADDY; Protocol Stop: 02/10/25 21:01 Last Admin: 02/09/25 08:35 Dose: 45 mg Phenobarbital (Phenobarbital 30 Mg Tablet) 30 mg PO BID MADDY; Protocol Stop: 02/12/25 21:01 Phenobarbital (Phenobarbital 30 Mg Tablet) 30 mg PO DAILY MADDY; Protocol Stop: 02/14/25 09:01 Potassium Chloride (Potassium Chloride Er 20 Meq Tab.Er.Prt) 20 meq PO BID [facility] Last Admin: 02/09/25 08:35 Dose: 20 meq Sodium Chloride (0.9 % Sodium Chloride Flush 3 Ml Syringe) 3 ml IVFLUSH QSHIFT [facility] Last Admin: 02/09/25 08:43 Dose: 3 ml Allergies Allergies Allergy/AdvReac Type Severity Reaction Status Date / Time No Known Allergies Allergy Verified 02/08/25 04:43 Assessment & Plan Assessment & Plan (1) Alcohol use disorder, severe, dependence: Status: Acute Code(s): F10.20 - Alcohol dependence, uncomplicated Assessment and Plan: phenobarbital taper in place, managing sx appropriately transition to IV thiamine 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 PMFSH Past Medical History Medical History (Updated 02/09/25 @ 14:41 by Loren Bennett CNP) Alcohol use disorder, severe, dependence Anxiety Hypertension Family History Family History (Updated 02/08/25 @ 11:05 by Isabela Hoyt NP) Father Alcoholic Social History Social History Household Members: None Housing: Homeless Do you presently have visiting nurse or other home services: No Alcohol intake: current Patient Tobacco Use Status: Former Tobacco user Currently Displaying Signs/Symptoms of Drug Intoxication Withdrawal: No Have you been hit, kicked, punched, or otherwise hurt by someone within the past year? If so, by whom?: No Do you feel safe in your current relationship?: Yes Is there a partner from a previous relationship who is making you feel unsafe now?: No Are you made to feel afraid or neglected: No Advance Directives: No Advance Directives Information Provided: Yes Do you have a plan to hurt others: No Plan Recently lost weight without trying: No Nutrition Risks: No Nutritional Risk Patient : No : No Poor oral hygiene: No
[2025-02-09 12:00] VITALS: BP 125/88; PULSE 96; RESP 18; TEMP 36.7; O2SAT 95
[2025-02-09 15:43] VITALS: BP 129/81; PULSE 97; RESP 18; TEMP 36.8; O2SAT 97
[2025-02-09 19:18] VITALS: BP 158/91; PULSE 102; RESP 18; TEMP 36.9; O2SAT 98
[2025-02-09 23:26] VITALS: BP 127/78; PULSE 101; RESP 18; TEMP 37; O2SAT 97
[2025-02-10] MEDS: 0.9 % Sodium Chloride Flush 3 ML SYRINGE IVFLUSH ×2 (00:05→09:43)
[2025-02-10 03:32] VITALS: BP 134/91; PULSE 93; RESP 18; TEMP 36.7; O2SAT 99
[2025-02-10] MEDS: Lactated Ringers 1,000 ML 100 ML IVCONT (05:57)
[2025-02-10 07:48] VITALS: BP 121/84; PULSE 90; RESP 16; TEMP 36.1; O2SAT 99
[2025-02-10 09:41] VITALS: BP 109/78; PULSE 97; O2SAT 97
[2025-02-10] MEDS: Potassium Chloride ER 20 MEQ TAB.ER.PRT PO (09:42)
[2025-02-10] MEDS: Thiamine HCL 100 MG in 0.9 % Sodium Chloride 100 ML 202 MG IV (09:44)
--- NOTE | 2025-02-10 11:40 | MHC.RECOVRN ---
Addiction consult received for pt admitted with acute alcohol withdrawal. Recovery evaluation completed. Please see for additional details. Pt reports an unhealthy romantic relationship as a contributing factor to her increased drinking. Pt will be relocating to [place] today to stay with her daughter. Pt has agreed to start Naltrexone for AUD and will return to AA meetings for additional recovery support. Provided pt with written resources including information on inpatient and outpatient treatment, ROBERT, harm reduction, recovery coaching, and pathways to recovery. CM notified pt will need transportation to [place] to obtain her belongings and vehicle. ACS team available as needed for ongoing support
[2025-02-10 11:44] VITALS: BP 120/97; PULSE 87; RESP 16; TEMP 36.3; O2SAT 96
--- NOTE | 2025-02-10 12:47 | P.DS_ITS ---
DS: Providers Provider Date of Service: 02/10/25 Date of admission: 02/08/25 11:07 Date of discharge: 02/10/25 Primary care physician: None Physician Consults: 02/08/25 11:10 Addiction Medicine Provider Routine Consulting Provider: Addiction Nancy Reason for consultation: etoh DS: Diagnosis Discharge Diagnosis (1) Alcohol use disorder, severe, dependence: Status: Acute DS: Summary Hospital Course Hospital Course: From admission HPI: Date of Service: 02/08/25 Chief Complaint: Call intoxication 49-year-old woman presented to the ER with alcohol intoxication and withdrawal. Patient reported that she moved here from [place] about 3 weeks ago to move in with her boyfriend and has been drinking consistently every day. She reports that prior to 3 weeks ago she has not been drinking as often but has had many issues over the years with her alcoholism. She reports that this time she is not talking to any of her children. Patient reports feeling shaky, poor appetit e. Alcohol level was 380. Potassium 3.1, tachycardia and hypertension noted. Patient will be admitted for alcohol intoxication and withdrawal. Hospital course Pt admitted to the hospital for controlled detox for alcohol withdrawal after presenting to the ED acutely intoxicated and later exhibiting withdrawal symptoms. Has previously been to rehab at the beginning of this year, but reports lately she has been ?over the top with her drinking. Patient's electrolyte abnormalities including potassium will replenished and resolved. Pt was started on phenobarb protocol to good effect with management of her withdrawal symptoms. On morning of discharge pt reported feeling much better without any nausea, vomiting, headache, or tremors. CIWA has been low for 24+ hours. Pt was seen and evaluated by Addiction medicine and will be started on naltrexone 25 mg daily upon discharge. Will also be discharged on thiamine and folic acid daily. Pt was strongly encouraged to abstain from drinking and to use whatever social, familial, community, and medication support she can in order to maintain her sobriety. Pt should resume all of her other home medications. Discharge discussed with pt in detail and she is agreeable with the plan. Time Attestation Discharge Coordination Time (in mins): 35 Quality: Safe Use of Opioids Does Pt have an Active Cancer Diagnosis on the Problem List?: No Quality: Stroke Does the patient have a stroke diagnosis?: No Physical Exam Exam: Exam: General: AOx3, no acute distress Resp: CTA bilaterally CVS: S1, S2, RRR GI: +BS, NT, no distention Skin: Warm, dry Neuro: Cranial nerves II-XII grossly intact bilaterally. Motor grossly intact bilaterally. No tremors noted. Extremities: No edema Psych: Appropriate affect Vital Signs: Vital Signs: Last Vital Signs Temp 97.3 F 02/10/25 11:44 Pulse 87 02/10/25 11:44 Resp 16 02/10/25 11:44 BP 120/97 H 02/10/25 11:44 Pulse Ox 96 02/10/25 11:44 O2 Del Method Room Air 02/10/25 11:44 BMI result Body Mass Index 33.3 Discharge Plan Discharge Anticipated Discharge Date/Time: 02/10/25 12:47 Patient Disposition: Home, Self-Care Discharge Diagnosis: Acute alcohol withdrawal Referrals: Physician,None [Primary Care Provider, Medical] - 1 Week Discharge Medications: New naltrexone 50 mg tablet 50 mg PO DAILY Qty: 30 0RF Rx Instructions: take 1/2 tab daily for 3 days, then increase to one tab daily thiamine HCl (vitamin B1) 100 mg tablet 100 mg PO DAILY Qty: 30 0RF folic acid 1 mg tablet 1 mg PO DAILY Qty: 30 0RF Continued multivitamin Tablet 1 tab PO DAILY citalopram 10 mg tablet 10 mg PO DAILY amlodipine 5 mg tablet 5 mg PO DAILY hydrochlorothiazide 25 mg tablet 25 mg PO DAILY mirtazapine 7.5 mg tablet 7.5 mg PO BEDTIME PRN (Reason: Insomnia) Discharge Orders: Discharge Order (Routine); Ordered 02/10/25 Ordered By: Will Stock Activity on Discharge: As tolerated Stand Alone Forms: Patient Portal Discharge page Print Language: Danish Care Plan Goals: See below Health Concerns: Alcohol use disorder Alcohol withdrawal Plan of Treatment: You were admitted to the hospital for acute alcohol intoxication and beginning of symptoms on withdrawal. You were treated with phenobarb protocol which controlled your withdrawal symptoms. He has been scoring low on the CIWA scale for the past 24+ hours Jose A report feeling much better than when you arrived and that your tremors have ceased. You were seen and evaluated by Addiction medicine and provided resources to help you stop drinking. He will be discharged on naltrexone as well as supplementations for folic acid and thiamine. You were strongly encouraged to abstain from alcohol use and to use whatever resources that you can, including medications and familial/community/social support, in order to maintain your sobriety. You should resume all of your other home medications. -- you will be started on naltrexone to help control alcohol cravings. You should began by taking 1/2 tab for 3 days and then increase to 1 tab daily (25mg) -- take 1 thiamine and folic acid tablets daily -- resume all of your other home medications Assessment: See discharge summary
--- NOTE | 2025-02-10 13:28 | MHC.CM.PN ---
DP: PT HAS BEEN MEDICALLY CLEARED FOR DC HOME, NO SERVICES. A FRIEND WILL TRANSPORT.
[2025-02-10 13:47] VITALS: BP 112/81; PULSE 92; RESP 16; TEMP 36.3; O2SAT 99
--- NOTE | 2025-02-10 13:51 | MHC.CM.PN ---
pt dcd home self care
== END 2025-02-10 14:30 | disposition home or self-care (01) | DRG 775 ==
LOC: HO.ED 10:41 → HO.EDOVER 11:14 → HO.S3 15:20
PROVIDERS: Emergency Medicine; Admitting Provider Nurse Practitioner Acute Care; Emergency Provider Emergency Medicine; Visit Provider Student in an Organized Health Care Education/Training Program
DX: F10.239 Alcohol dependence with withdrawal, unspecified (principal); F10.229 Alcohol dependence with intoxication, unspecified; D69.59 Other secondary thrombocytopenia; E87.6 Hypokalemia; Y90.8 Blood alcohol level of 240 mg/100 ml or more; I10 Essential (primary) hypertension; F41.9 Anxiety disorder, unspecified; Z79.899 Other long term (current) drug therapy
CPT/HCPCS: 36415; 80048; 80053; 80307; 83735; 84484; 85025; 85027; 93005; 99285; J1650; J2405; J2560; J3360; J3411; J7120; S9485

== ENCOUNTER → 2025-02-08 04:48 | Outpatient (BNV) | payer SELFPAY | PROVIDERS: Admitting Provider Nurse Practitioner Acute Care; Emergency Provider Emergency Medicine; Visit Provider Internal Medicine | DX: R07.9 Chest pain, unspecified (principal) | CPT/HCPCS: 93010 ==

== ENCOUNTER → 2025-02-08 11:07 | Outpatient (BNV) | payer MEDICAID, SELFPAY | PROVIDERS: Admitting Provider Nurse Practitioner Acute Care; Emergency Provider Emergency Medicine; Visit Provider Nurse Practitioner Acute Care | DX: F10.239 Alcohol dependence with withdrawal, unspecified (principal) | CPT/HCPCS: 99232; 99239 ==

== ENCOUNTER → 2025-02-08 11:07 | Outpatient (BNV) | payer SELFPAY | PROVIDERS: Admitting Provider Nurse Practitioner Acute Care; Emergency Provider Emergency Medicine; Visit Provider Nurse Practitioner Psychiatric/Mental Health | DX: F10.20 Alcohol dependence, uncomplicated (principal) | CPT/HCPCS: 99222 ==